=== PATIENT | female | born 1950 | race Caucasian/White ===

== ENCOUNTER → 2016-10-19 | Outpatient (CLI) | payer MEDICARE, BC ==
[~2016-10-19] MED LIST: ARTHROTEC 775 MG/TAB PO; LIPITOR20 MG PO; NORCO 325 MG-51 TAB PO; OMEGA-3 FISH1200 MG PO; ZYLOPRIM 100MG100 MG PO
== END ==
LOC: MC.RAD 13:49
DX: Z12.31 Encounter for screening mammogram for malignant neoplasm of breast (principal); R92.0 Mammographic microcalcification found on diagnostic imaging of breast

== ENCOUNTER → 2017-11-30 | Outpatient (CLI) | payer MEDICARE, BC | LOC: MC.RAD 14:34 | DX: Z12.31 Encounter for screening mammogram for malignant neoplasm of breast (principal) ==

== ENCOUNTER 2018-06-07 11:55 | Emergency (ER) | payer MEDICARE, BC ==
[~2018-06-07] VITALS: Ht 165.1 cm; Wt 120.9 kg
[2018-06-07 12:06] VITALS: TEMP 97.9
[2018-06-07] MEDS ORDERED: FLEXERIL 1010 MG/TAB PO (14:56)
[2018-06-07] MEDS ORDERED: NORCO 325 MG-51 TAB PO (14:56)
[2018-06-07] MEDS ORDERED: MEDROL 4MG DOSPA4 MG PO (14:56)
[2018-06-07 15:10] VITALS: BP 130/70; PULSE 70
== END 2018-06-07 15:10 | disposition home or self-care (01) ==
LOC: COL.ER 11:55
DX: M54.42 Lumbago with sciatica, left side (principal)

== ENCOUNTER → 2019-11-13 | Outpatient (CLI) | payer MEDICARE, BC, OTHER ==
[~2019-11-13] MED LIST changes: +FLEXERIL 1010 MG/TAB PO; +MEDROL 4MG DOSPA4 MG PO
== END ==
LOC: MC.RAD 13:03
DX: Z12.31 Encounter for screening mammogram for malignant neoplasm of breast (principal)

== ENCOUNTER → 2020-04-09 | Outpatient (CLI) | payer MEDICARE, BC, OTHER | LOC: COL.RAD 13:14 | DX: M47.816 Spondylosis without myelopathy or radiculopathy, lumbar region (principal); Z98.890 Other specified postprocedural states; Z98.1 Arthrodesis status ==

== ENCOUNTER 2020-10-06 12:43 | Inpatient (IN) | payer MEDICARE, BC ==
[~2020-10-06] VITALS: Ht 165.1 cm; Wt 113.6 kg
[2020-10-06 13:40] LABS: BASO % 0.1 % (0.0-2.0); GRAN % 75.1 % (42.2-75.2); HEMOGLOBIN 11.8 g/dl (12.5-16.0); LYMPH # 1.4 (1.2-3.4); LYMPH % 17.1 % (20.0-51.0); MEAN CELL VOLUME 103 fl (80.0-100.0); MEAN CORPUSCULAR HEMOGLOBIN 33 pg (27.0-31.0); MEAN CORPUSCULAR HGB CONC 32 g/dl (33.0-37.0); MEAN PLATELET VOLUME 11.9 fl (7.4-10.4); MONO # 0.6 (0.1-0.6); MONO % 7.1 % (1.7-9.3); PLATELET COUNT 167 K/mm3 (130-400); RED BLOOD COUNT 3.55 M/mm3 (4.10-5.30); REDCELL DISTRIBUTION WIDTH-CV 15.5 % (11.5-14.5)
[2020-10-06 13:42] LABS: HEMATOCRIT 36.7 % (37.0-47.0)
[2020-10-06 15:15] LABS: ALBUMIN 3.8 gm/dL (3.5-5.0); BILIRUBIN,TOTAL 0.5 mg/dL (0.0-1.0); CALCIUM 8.5 mg/dL (8.4-10.2); CREATININE, serum 4.89 (0.52-1.25); POTASSIUM 4.6 mmol/L (3.4-5.0); TOTAL PROTEIN 6.7 gm/dL (6.4-8.2)
[2020-10-06 15:34] LABS: C-REACTIVE PROTEIN 14.1 mg/dL (0.0-0.9)
[2020-10-06 15:34] LABS: COLLECTION METHOD CATHETER
[2020-10-06 15:55] LABS: MUCOUS Present /lpf; PH 5 (5-8); URINE APPEARANCE Cloudy; URINE BACTERIA Many /hpf; URINE BILIRUBIN Negative (NEGATIVE); URINE BLOOD 3+ (NEGATIVE); URINE COLOR Amber; URINE GLUCOSE Negative (NEGATIVE); URINE KETONE Negative (NEGATIVE); URINE LEUKOCYTE ESTERASE 2+ (NEGATIVE); URINE NITRATE Negative (NEGATIVE); URINE PROTEIN(semi-quant) 2+ (NEGATIVE); URINE UROBILINOGEN Negative (NEGATIVE)
[2020-10-06 23:14] VITALS: BP 119/54; PULSE 70; TEMP 98.7
--- NOTE | 2020-10-06 23:31 | NUR ---
Patient admitted to medical floor room 309 via hospital bed from ER around 1999. Patient appears confused and oriented to self only. Able to tell her name and date of . Oriented patient to the room and place. Patient currently on room air. Non-productive occasional coughing noted. Patient denies any pain or discomfort. Denies SOB or dyspnea. Breathing even and unlabored. Skin excoriation to under breast, pannus, and groin area noted. Sandwitch box and ice-water provided. Oriented patient to the room. Call light within reach. Will continue to monitor.
[2020-10-07 04:33] VITALS: BP 120/40; BP 120/50; PULSE 70; TEMP 98.2
--- NOTE | 2020-10-07 05:59 | NUR ---
Patient slept well over the night. VS remains stable. No fever, no N/v, and no diarrhea note throughout the night. Call light within reach. Will continue to monitor.
[2020-10-07 07:51] LABS: HEMOGLOBIN 10.7 g/dl (12.5-16.0); MEAN CELL VOLUME 100 fl (80.0-100.0); MEAN CORPUSCULAR HEMOGLOBIN 33 pg (27.0-31.0); MEAN CORPUSCULAR HGB CONC 33 g/dl (33.0-37.0); MEAN PLATELET VOLUME 11.5 fl (7.4-10.4); PLATELET COUNT 155 K/mm3 (130-400); RED BLOOD COUNT 3.26 M/mm3 (4.10-5.30); REDCELL DISTRIBUTION WIDTH-CV 15.2 % (11.5-14.5)
[2020-10-07 07:54] LABS: HEMATOCRIT 32.7 % (37.0-47.0)
[2020-10-07 08:07] LABS: CALCIUM 8.2 mg/dL (8.4-10.2); CREATININE, serum 3.02 (0.52-1.25); POTASSIUM 4.4 mmol/L (3.4-5.0)
[2020-10-07 08:39] LABS: ANISOCYTOSIS 1+; HYPOCHROMIA 1+; LYMPHOCYTE 10 % (20.0-51.0); NEUTROPHILS 88 % (42.0-75.2); PLATELET ESTIMATE NORMAL (NORMAL)
[2020-10-07 09:09] VITALS: BP 123/50; PULSE 73; TEMP 98.3
--- NOTE | 2020-10-07 10:18 | NUR ---
The patient is COVID positive. SW attempted to contact the patient's room phone to discuss discharge plan. She did not answer. JENNIFFER then contacted the patient's , Hunter (ph#[phone]), to complete intake. The patient lives in [place] with her . Hunter states that one of their sons is staying with them right now too. Hunter reports that he has been providing assistance to the patient for her ADLs and that she has a walker. The patient's PCP is Dr. Maria Teresa Pringle and she receives her medications from [facility] in [place]. Hunter reports no difficulties obtaining her meds. Hunter reports that he is concerned about the patient being discharged too soon and then he would not be able to take care of her. He states that it is starting to wear him down. SW to ask for PT/OT to be ordered. *Discharge plan: Possibly home with . Await therapy's recs*
[2020-10-07 11:17] VITALS: BP 125/46; PULSE 66; TEMP 98.5
--- NOTE | 2020-10-07 14:24 | NUR ---
Patient is doing well but does not have much of an appetite. Patient is being given nutritional supplements, but does not seem to like them. Patient seems to be more alert than she was on lunchroom mother according to report. Patient has been able to correctly tell me where she is, what year it is, and who the current president is. Patient has yet to have diarrhea as she reported to have been having at home. Patient has no complaints at this time and remains on RA.
[2020-10-07 17:00] VITALS: BP 124/49; PULSE 73; TEMP 98
--- NOTE | 2020-10-07 19:11 | NUR ---
This RN and the assigned PCT provided jamey-care for the patient and placed a purewik. Patient tolerated this well and had no complaints. Desenex powder was placed under the pannus and groin area.
[2020-10-07 21:25] VITALS: BP 145/67; PULSE 90; TEMP 98.9
[2020-10-08] VITALS (7 sets, daily range): BP systolic 118–148; BP diastolic 44–80; PULSE 67–94; TEMP 97.7–98.5
--- NOTE | 2020-10-08 01:08 | NUR ---
Pt confused, oriented to name and place. When asked questions pt's states "I'm gonna need a few minutes" then would forget the question. Pt confused on personal belongings thinking they were her . Pt calling out for help, educated information systems security analyst light, unable to comprehend. Baby monitor utilized for greater monitoring. Pt's skin folds are excoriated under breasts, within groin folds, and under abdomen. Pt's skin open under breasts, scant bleeding noted. Pt cleaned with personal bathing wipes, powder used to help manage moisture and pillowcases put inbetween skin folds as a barrier. Pt able to take PO medications with verbal cues. Pt has purewick catheter in place, pt confused on education and unable to comprehend ability to void with cathter. Pt will continue to be educated. Fall precautions observed, call light within reach.
--- NOTE | 2020-10-08 06:16 | NUR ---
Pt disoriented this shift, unable to answer orientation questions consistently. Oriented to name. Pt shouting out for help during the evening, re-educated bronze plater light use. Monitor placed in room for increased visualization and safety. Pt has purewick catheter placed for incontinence. Pt's skin folds of abdomen, groin, and breasts excoriated with some breaks in skin under breasts. Managed with powder and pillow cases to decrease moisture. Pt cleaned with cleansing wipes. Pt received PO antibiotics for infection management. Pt free from injury this shift. Pt expressed pain with movement and repositioning, denied pain for rest of shift.
[2020-10-08 06:40] LABS: BASO % 0.1 % (0.0-2.0); GRAN % 84.8 % (42.2-75.2); HEMOGLOBIN 11.2 g/dl (12.5-16.0); LYMPH # 1.1 (1.2-3.4); LYMPH % 10.2 % (20.0-51.0); MEAN CELL VOLUME 102 fl (80.0-100.0); MEAN CORPUSCULAR HEMOGLOBIN 33 pg (27.0-31.0); MEAN CORPUSCULAR HGB CONC 32 g/dl (33.0-37.0); MEAN PLATELET VOLUME 10.9 fl (7.4-10.4); MONO # 0.5 (0.1-0.6); MONO % 4.2 % (1.7-9.3); PLATELET COUNT 191 K/mm3 (130-400); RED BLOOD COUNT 3.39 M/mm3 (4.10-5.30); REDCELL DISTRIBUTION WIDTH-CV 15.2 % (11.5-14.5)
[2020-10-08 06:49] LABS: HEMATOCRIT 34.6 % (37.0-47.0)
[2020-10-08 06:56] LABS: CALCIUM 8.5 mg/dL (8.4-10.2); CREATININE, serum 2.11 (0.52-1.25); POTASSIUM 4.2 mmol/L (3.4-5.0)
--- NOTE | 2020-10-08 10:28 | NUR ---
Patient upset, crying, wanting to go home. Stated, "I can't do this anymore. I miss my kids and my . I can't keep this thing in my nose anymore". This RN comforted the patient and explained why everything was being done and that we are trying to help her recover and go back home. This RN did speak with the this morning and he informed me that the patient enjoys watching soap operas. This RN turned the tv on in the patient's room and that seemed to help with her mood a bit. Morning medications have been administered and assessment completed. Purewik was emptied and output has been adequate. Patient still has no appetite. This RN is encouraging the patient to eat, but patient still refuses.
[2020-10-08 12:51] LABS: ALBUMIN 3.4 gm/dL (3.5-5.0); C-REACTIVE PROTEIN 7.7 mg/dL (0.0-0.9); TOTAL PROTEIN 6.5 gm/dL (6.4-8.2)
[2020-10-08 13:02] LABS: BILIRUBIN UNCONJUGATED 0.2 mg/dL (0.0-1.1); BILIRUBIN,DIRECT 0.1 mg/dL (0.0-0.4); BILIRUBIN,TOTAL 0.3 mg/dL (0.0-1.0)
--- NOTE | 2020-10-08 20:00 | NUR ---
Assessment complete. Patient is alert and oriented, but beginning to . She is tearful and feels lonely. Emotional support is provided and patient is assisted to call her , Hunter, who is also updated on patient's status by the RN at this time. Patient has no complaints of pain and is afebrile. No edema is noted. Lung sounds have expiratory wheezes throughout and HR is normal/regular. She wears 2 liters 02 with no signs of SOA. Call light in reach and bed alarm set. Will continue to monitor.
[2020-10-09 04:30] VITALS: BP 144/69; PULSE 66; TEMP 97.6
[2020-10-09 07:06] LABS: BASO % 0.1 % (0.0-2.0); GRAN # 6.1 (1.4-6.5); GRAN % 80.1 % (42.2-75.2); HEMOGLOBIN 11.8 g/dl (12.5-16.0); LYMPH % 13.1 % (20.0-51.0); MEAN CELL VOLUME 103 fl (80.0-100.0); MEAN CORPUSCULAR HEMOGLOBIN 34 pg (27.0-31.0); MEAN CORPUSCULAR HGB CONC 33 g/dl (33.0-37.0); MONO # 0.4 (0.1-0.6); MONO % 5.6 % (1.7-9.3); PLATELET COUNT 211 K/mm3 (130-400); RED BLOOD COUNT 3.49 M/mm3 (4.10-5.30); REDCELL DISTRIBUTION WIDTH-CV 15.3 % (11.5-14.5)
[2020-10-09 07:15] LABS: ALBUMIN 3.3 gm/dL (3.5-5.0); BILIRUBIN,TOTAL 0.5 mg/dL (0.0-1.0); C-REACTIVE PROTEIN 8.6 mg/dL (0.0-0.9); CALCIUM 8.4 mg/dL (8.4-10.2); CREATININE, serum 1.77 (0.52-1.25); POTASSIUM 4.4 mmol/L (3.4-5.0); TOTAL PROTEIN 6.3 gm/dL (6.4-8.2)
[2020-10-09 07:24] VITALS: BP 164/78; PULSE 66; TEMP 97.6
[2020-10-09 07:29] LABS: HEMATOCRIT 35.8 % (37.0-47.0)
--- NOTE | 2020-10-09 11:14 | NUR ---
Scheduled medications given, shift assessment preformed. Patient is currently requiring 4 L of O2 via nasal cannula. Excoriation noted on abdominal folds, desenex powder applied as ordered. LR running as orderded. Purewick in use, urine is tea colored. Patient denies any pain, discomfort, or futher needs at this time. VSS. Call light in reach. Fall precautions in place.
[2020-10-09 12:00] VITALS: BP 155/87; PULSE 63; TEMP 97.6
--- NOTE | 2020-10-09 19:14 | NUR ---
Patient has had an ok day. Currently requiring 4L of O2 via nasal cannula. Bed change and bed bath completed. Purewick in place. Patient answers orientation questions correctly, but conversation can be confused. Patient had one episode of diarrhea. Patient denies any N/V, but has refused to eat today. Fluids running as ordered. Patient denies any pain, discomfort, or further needs. VSS. Call light in reach.
--- NOTE | 2020-10-09 20:00 | NUR ---
Assessment complete. Patient answers orientation questions correctly but still appears slightly confused; she has not been impulsive in getting out of bed. She complaints of generalized discomfort, specifically in her arthritic joints; PRN Tylenol administered. Purewick is removed and replaced at this time; she is incontinent of a small, diarrhea bowel movement as well and linens are changed/jamey care provided. She wears 4 liters 02 and shows no signs of increased work of breathing. Desenex powder is applied under panus and no edema is noted in extremities. LR infusing into right forearm IV. Patient's is updated on patient's condition. Call light in reach and bed alarm set. Will continue to monitor.
[2020-10-09 20:18] VITALS: BP 130/90; PULSE 66; TEMP 97.7
[2020-10-10 00:03] VITALS: BP 149/120; PULSE 58; TEMP 97.7
[2020-10-10 04:55] VITALS: BP 157/70; PULSE 64; TEMP 97.7
[2020-10-10 07:10] LABS: HEMATOCRIT 38.8 % (37.0-47.0); HEMOGLOBIN 12.4 g/dl (12.5-16.0); MEAN CELL VOLUME 104 fl (80.0-100.0); MEAN CORPUSCULAR HEMOGLOBIN 33 pg (27.0-31.0); MEAN CORPUSCULAR HGB CONC 32 g/dl (33.0-37.0); MEAN PLATELET VOLUME 10.9 fl (7.4-10.4); PLATELET COUNT 235 K/mm3 (130-400); RED BLOOD COUNT 3.73 M/mm3 (4.10-5.30); REDCELL DISTRIBUTION WIDTH-CV 15.3 % (11.5-14.5)
[2020-10-10 07:16] LABS: ALBUMIN 3.2 gm/dL (3.5-5.0); BILIRUBIN,TOTAL 0.5 mg/dL (0.0-1.0); CALCIUM 8.4 mg/dL (8.4-10.2); CREATININE, serum 1.58 (0.52-1.25); MAGNESIUM 2.2 mg/dL (1.6-2.3); POTASSIUM 4.7 mmol/L (3.4-5.0); TOTAL PROTEIN 6.2 gm/dL (6.4-8.2)
[2020-10-10 08:58] VITALS: BP 154/68; PULSE 53; TEMP 96.7
[2020-10-10 11:09] VITALS: BP 157/58; PULSE 58; TEMP 98
[2020-10-10 15:54] VITALS: BP 159/53; PULSE 57; TEMP 98.2
--- NOTE | 2020-10-10 16:34 | NUR ---
LEDESMA PLACED IN PT, IMMEDIATE OUTPUT OF 750 DARK YELLOW CLEAR URINE. PT TOLERATED PLACEMENT WELL. NO OTHER CONCERNS.
[2020-10-10 17:21] LABS: THYROID STIMULATING HORMONE 1.66 uIU/mL (0.465-4.680)
--- NOTE | 2020-10-10 18:00 | NUR ---
Patient has had an eventful day. Patient transferred from 309 to room 308 to be placed on air mattress to prevent further breakdown of sacral area. Scheduled medications given, shift assessment preformed. This nurse has been unable to get patient to eat this shift. Patient asked if there is anything specific she would prefer, her reply was "I am not hungry." Dr. Blood made aware. Patient output totaled only 100 mls. Bladder scan preformed, patient had 518 ml of residual in bladder. Dr. Blood made aware, order for sotelo placed. FRED Brown. placed sotelo an immediately got 750ml of urine out. PRN tylenol given for headache rated a 3/10. Patient currently requiring 5L of O2 via oxymask. Patient repositioned Q2. Patient denies any further pain, discomfort, or futher needs a this time. VSS.
--- NOTE | 2020-10-10 19:43 | NUR ---
FOUND PT W/ OXYMASK OFF OF FACE O2 SATS AROUND 72% ON RA. STAYED W/ PT SEVERAL MINUTES AND SHE IS NOW 91% ON 11 LPM OXYMASK. PT SAID SHE TOOK MASK OFF B/C SHE WAS TIRED OF IT. SPOKE W/ PT ABOUT IMPORTANCE OF LEAVING O2 ON AND SHE SEEMED TO HAVE A GOOD UNDERSTANDING. I WILL INFORM RN
--- NOTE | 2020-10-10 20:00 | NUR ---
Assessment complete. Patient is slightly drowsy and appears more depressed than normal; she answers 3/4 orientation questions correctly. She was able to get up on edge of bed and stand with assistance in order to get better positioned in bed. She wears 9 liters 02 via oxymask and is satting 91-92%. Fine crackles are now audible in upper lobes with greatly diminished sounds in lower lobes. Emotional support and comfort measures are provided. Call light in reach and will continue close monitoring.
[2020-10-10 21:25] VITALS: BP 174/78; PULSE 86; TEMP 97.2
[2020-10-11] VITALS: BP 180/71; PULSE 76; TEMP 98.3
--- NOTE | 2020-10-11 00:18 | NUR ---
BP 180/71 at this time. Order obtained for PRN apresoline, which is administered into newly initiated right forearm INT. Patient on 10 liters 02 via oxymask and satting 90-92%. She is afebrile. Will continue to monitor.
[2020-10-11 01:25] LABS: PROCALCITONIN 0.49 ng/mL (0.00-0.09)
[2020-10-11 01:49] LABS: ARTERIAL BLD GAS TCO2 CT 21.1; ARTERIAL BLOOD GAS BASE EXCESS -1.1 (-2-2); ARTERIAL BLOOD GAS HCO3 20.3 meq/L (22-26); ARTERIAL BLOOD GAS PCO2 25.7 mmHg (35-45); ARTERIAL BLOOD GAS PO2 61.3 mmHg (80-100); ARTERIAL BLOOD GAS pH 7.52 (7.35-7.45)
--- NOTE | 2020-10-11 02:00 | NUR ---
Patient consistently taking off oxymask; requiring 14 liters and satting 89-91%. RT and TAILER OFF Marguerite notified; trialed BIPAP which patient only tolerated for approx 30 minutes. Patient now on airvo, after several minutes of education regarding risks without it. CT of head and chest ordered for when patient's anxiety will allow for accurate testing.
[2020-10-11 02:32] LABS: HEMATOCRIT 40.4 % (37.0-47.0); HEMOGLOBIN 12.8 g/dl (12.5-16.0); MEAN CELL VOLUME 104 fl (80.0-100.0); MEAN CORPUSCULAR HEMOGLOBIN 33 pg (27.0-31.0); MEAN CORPUSCULAR HGB CONC 32 g/dl (33.0-37.0); MEAN PLATELET VOLUME 10.7 fl (7.4-10.4); PLATELET COUNT 248 K/mm3 (130-400)
[2020-10-11 02:43] LABS: ALBUMIN 3.3 gm/dL (3.5-5.0); BILIRUBIN,TOTAL 0.7 mg/dL (0.0-1.0); CALCIUM 8.4 mg/dL (8.4-10.2); CREATININE, serum 1.46 (0.52-1.25); MAGNESIUM 2.1 mg/dL (1.6-2.3); POTASSIUM 4.3 mmol/L (3.4-5.0); TOTAL PROTEIN 6.4 gm/dL (6.4-8.2)
[2020-10-11 07:40] VITALS: BP 152/80; PULSE 89; TEMP 97.2
[2020-10-11 11:28] VITALS: BP 118/90; PULSE 95; TEMP 97.6
--- NOTE | 2020-10-11 14:05 | NUR ---
The patient is currently requiring 50 liters of oxygen, via high flow cannula. PT/OT are recommending SNF. SW contacted the patient's , Hunter, to follow up. Hunter reports that he has not received a call from the doctor in a couple of days and is not for certain what is going on. SW to ask the hospitalist to contact Hunter. SW updated Hunter on the patient's oxygen requirements and therapy's recommendation. Hunter is open to SNF and is considering a SNF in [place]. He would like a call from the doctor and states that he will then proceed with d/c plans from there. SW to continue to follow. *Discharge plan: SNF*
[2020-10-11 15:34] VITALS: BP 150/81; PULSE 60; TEMP 97.8
--- NOTE | 2020-10-11 19:10 | NUR ---
Pt remained very confused and non compliant with airvo. Staff in several times throughout the day to replace it. Pt kept saying "I can't wear this anymore", repeating several times she needed to urinate. Remineded of sotelo catheter in place. Attempted to reorient patient. Pt refused much PO intake. Took pills with water but would not drink anything further than that. Refused food, she did attempt to eat one dorito. Pt does have a pressure reducing mattress in place. Nephrology consulted today per Dr. Godoy. No needs at this time, monitor in place along with fall precautions.
[2020-10-11 20:13] VITALS: BP 141/65; PULSE 67; TEMP 97.9
--- NOTE | 2020-10-11 20:30 | NUR ---
Initial shift assessment done- pt confused, pulling of oxygen, on airvi 50L,61%,, sats 80% when o2 off--Airvo back on, mitts put on patient-- back up to 92%. Did take pills with water. bed alarm on- In Isolation, Visual monitor on patient.
--- NOTE | 2020-10-11 22:35 | NUR ---
Called by Tele that patient is having frequent PVC,s- o2 sats 92% on AirvoMarguerite called - orders for lab work and ABG,s and EKG given.
[2020-10-11 23:14] LABS: ARTERIAL BLD GAS TCO2 CT 21.3; ARTERIAL BLOOD GAS BASE EXCESS -1.2 (-2-2); ARTERIAL BLOOD GAS HCO3 20.5 meq/L (22-26); ARTERIAL BLOOD GAS PCO2 26.3 mmHg (35-45); ARTERIAL BLOOD GAS PO2 78.4 mmHg (80-100); ARTERIAL BLOOD GAS pH 7.51 (7.35-7.45)
[2020-10-11 23:57] LABS: CALCIUM 8.4 mg/dL (8.4-10.2); CREATININE, serum 1.26 (0.52-1.25); MAGNESIUM 2.1 mg/dL (1.6-2.3); POTASSIUM 4.2 mmol/L (3.4-5.0)
[2020-10-12 00:20] VITALS: BP 166/83; PULSE 84; TEMP 98.7
--- NOTE | 2020-10-12 01:30 | NUR ---
Very agitated-- pulling off mitts- yelling out,, Marguerite called- did go over all lab results from earlier and the EKG and ABG,s,,, states she will order one time serarustaml p.o
[2020-10-12 04:00] VITALS: BP 150/57; PULSE 55; TEMP 97.7
--- NOTE | 2020-10-12 06:03 | NUR ---
Slept very well after the Seraquel that was given at 0200-- VSS, o2 sats 97% on Airvo 50L, 61%,,, did have just a smear of stool that was cleaned up- repositioned -pulled up in bed during the night.
--- NOTE | 2020-10-12 07:01 | NUR ---
Report received from FRED Phipps. PT in bed sleeping, will continue otm ontior.
[2020-10-12 09:34] VITALS: BP 155/83; PULSE 83; TEMP 97.5
--- NOTE | 2020-10-12 10:00 | NUR ---
Assessment hcarted. Upon entry into room pt has 02 off and is shaking and moving around in bed. states she "has to pee", educated on catheter and able to void via sotelo, pt continues to state "i have to pee" approximately 10 more educational sessions provided. Turned pt for comfort to offset reddened area that may be stage one on either side of buttock cheeks. Pt states she hurts everywhere, refusing to eat or drink anything, does not orient to date or place. INT ot RFA. Tried to feed breakfast but pt spits it out. Airvo at 50L/60%. Will continue to turn and assist with meals.
[2020-10-12 12:26] VITALS: BP 178/75; PULSE 62; TEMP 97.9
[2020-10-12] MEDS ORDERED: HCTZ12.5TAB PO (12:59)
[2020-10-12] MEDS ORDERED: CALCITRIOL PO (12:59)
[2020-10-12] MEDS ORDERED: NEURONTIN300 MG/CAP PO (13:00)
[2020-10-12] MEDS ORDERED: PRINIVIL10 MG PO (13:00)
[2020-10-12] MEDS ORDERED: ZYLOPRIM 300MG300 MG PO (13:01)
[2020-10-12] MEDS ORDERED: TOPROL XL100 MG PO (13:01)
[2020-10-12 16:00] VITALS: BP 157/85; PULSE 55; TEMP 97.5
[2020-10-12 17:30] LABS: COLLECTION METHOD CATHETER
[2020-10-12 17:39] LABS: BUDDING YEAST Present /hpf; PH 6 (5-8); SQUAMOUS EPITHELIAL 0-2 /hpf; URINE APPEARANCE Hazy; URINE BACTERIA None Seen /hpf; URINE BILIRUBIN Negative (NEGATIVE); URINE BLOOD 3+ (NEGATIVE); URINE COLOR Yellow; URINE GLUCOSE Negative (NEGATIVE); URINE KETONE Negative (NEGATIVE); URINE LEUKOCYTE ESTERASE Negative (NEGATIVE); URINE NITRATE Negative (NEGATIVE); URINE PROTEIN(semi-quant) 2+ (NEGATIVE); URINE RBC >50 /hpf; URINE UROBILINOGEN Negative (NEGATIVE); URINE WBC >50 /hpf
--- NOTE | 2020-10-12 18:26 | NUR ---
Pt resting in bed, bed bath provided this afternoon. Encouraged pt to do own cares but pt did not want to participate much, also needed a lot of cueing such as "Fern please use the comb in your hand to comb your hair" after pt left it in hand for 5 minutes after bath. Pt did drink a bit more water over shift but still rejecting all foods and will not tell me anything specific that is appealing to her. Denies needs, turning q2hr for comfort to either side. Watching TV. Will give report to [facility] nurse hwo will resume care.
--- NOTE | 2020-10-12 20:30 | NUR ---
Initial shift assessment done- resting quietly, pleasantly confused, calm, not taking airvo off- states does have some "aches"-- will give Tylenol . Taking some water with meds without problems. Airvo at 50L,62%- sats 95-96%
[2020-10-12 20:37] VITALS: BP 175/61; PULSE 43; TEMP 99.3
[2020-10-13 00:29] VITALS: BP 157/63; PULSE 54; TEMP 98.9
[2020-10-13 04:15] VITALS: BP 150/60; PULSE 55; TEMP 97
--- NOTE | 2020-10-13 06:15 | NUR ---
Very calm night- VSS, did not take off oxygen at all during the shift- Continues on Airvo 45L,55% , o2 sat 96% at this time. VSS
[2020-10-13 08:58] VITALS: BP 148/61; PULSE 57; TEMP 97.5
[2020-10-13 09:19] LABS: HEMATOCRIT 38.9 % (37.0-47.0); HEMOGLOBIN 12.7 g/dl (12.5-16.0); MEAN CELL VOLUME 103 fl (80.0-100.0); MEAN CORPUSCULAR HEMOGLOBIN 34 pg (27.0-31.0); MEAN CORPUSCULAR HGB CONC 33 g/dl (33.0-37.0); MEAN PLATELET VOLUME 10.8 fl (7.4-10.4); PLATELET COUNT 226 K/mm3 (130-400); RED BLOOD COUNT 3.79 M/mm3 (4.10-5.30); REDCELL DISTRIBUTION WIDTH-CV 14.7 % (11.5-14.5)
[2020-10-13 09:32] LABS: CALCIUM 8.4 mg/dL (8.4-10.2); CREATININE, serum 1.15 (0.52-1.25); MAGNESIUM 2.2 mg/dL (1.6-2.3); POTASSIUM 4.8 mmol/L (3.4-5.0)
[2020-10-13 11:07] LABS: BAND 1 % (0-10); HYPOCHROMIA 1+; LYMPHOCYTE 11 % (20.0-51.0); NEUTROPHILS 84 % (42.0-75.2)
[2020-10-13 11:08] LABS: PLATELET ESTIMATE NORMAL (NORMAL)
[2020-10-13 12:00] VITALS: BP 143/71; PULSE 58; TEMP 98.5
[2020-10-13 16:03] VITALS: BP 146/51; PULSE 46; TEMP 98.3
--- NOTE | 2020-10-13 16:35 | NUR ---
Patient refuses to consume anything orally. This RN has attempted multiple times to get the patient to eat/drink. Patient just states, "I will eat when I'm hungry". This RN attempted to get the patient to turn and place pillows on the opposite side, but she refuses. Patient is accepting medications. Patient just sleeps, and is easy to arouse.
[2020-10-13 19:28] VITALS: BP 169/68; PULSE 50; TEMP 98.4
--- NOTE | 2020-10-13 20:07 | NUR ---
Initial shift assessment completed. Patient laying in bed awake upon enter the room. Patient alert and oriented. Patient answers questions appropriately. Dinner tray at bedside table. Offered patient to eat dinner, patient replied, "I am not hungry." Patient currently on Arivo 40L/56%. Breathing even and unlabored. Patient denies SOB or dyspnea. Denies any pain or discomfort. All scheduled meds given per MAY. Patient took medication without difficulty. Offered patient to reposition, but patient refused. Call light within reach. Will continue to monitor.
[2020-10-14] VITALS (8 sets, daily range): BP systolic 128–186; BP diastolic 53–77; PULSE 45–685; TEMP 97.3–98.2
--- NOTE | 2020-10-14 05:33 | NUR ---
Patient had restful night. Awakes easily with voice and touch. Remains on Airvo 40L/40%. No acute respiratory distress noted. Call light within reach. Will continue to monitor.
--- NOTE | 2020-10-14 08:15 | NUR ---
Pt sleeping upon entry, easily awakened. Pt not eating food that is offered, states has no appatite. No C/O pain at this time. Shift assesments complete. Left Pt call light in reach, bed in lowest position.
--- NOTE | 2020-10-14 21:08 | NUR ---
Shift assessment completed. Patient appears drowsy but arousable easily with voice and touch. Patient answers questions appropriately. Patient denies any pain or discomfort. Denies SOB or dyspnea while at rest. Patient currently on Airvo 40L/36%. Respirations even and unlabored. Scheduled meds given per MAY. Patient took medications without difficulty. Offered snacks and Ensure. Patient refused. Patient states not hungry. Call light in reach. Will continue to monitor.
[2020-10-15 04:55] VITALS: BP 128/57; PULSE 63; TEMP 97.8
--- NOTE | 2020-10-15 05:55 | NUR ---
Patient slept well throughout the night. Arouses easily with voice. Remains on Airvo 40L. SPO2 remains above 90% on 40L Airvo. No acute distress noted.
[2020-10-15 07:13] LABS: HEMATOCRIT 40.1 % (37.0-47.0); HEMOGLOBIN 13.1 g/dl (12.5-16.0); MEAN CELL VOLUME 104 fl (80.0-100.0); MEAN CORPUSCULAR HEMOGLOBIN 34 pg (27.0-31.0); MEAN CORPUSCULAR HGB CONC 33 g/dl (33.0-37.0); MEAN PLATELET VOLUME 11.3 fl (7.4-10.4); PLATELET COUNT 231 K/mm3 (130-400); RED BLOOD COUNT 3.86 M/mm3 (4.10-5.30); REDCELL DISTRIBUTION WIDTH-CV 14.5 % (11.5-14.5)
[2020-10-15 07:25] LABS: ALBUMIN 3.2 gm/dL (3.5-5.0); BILIRUBIN,TOTAL 0.8 mg/dL (0.0-1.0); CALCIUM 8.5 mg/dL (8.4-10.2); CREATININE, serum 1.29 (0.52-1.25); MAGNESIUM 2.2 mg/dL (1.6-2.3); POTASSIUM 4.9 mmol/L (3.4-5.0); TOTAL PROTEIN 5.9 gm/dL (6.4-8.2)
[2020-10-15 07:49] VITALS: BP 110/46; PULSE 54; TEMP 97.8
--- NOTE | 2020-10-15 08:30 | NUR ---
JENNIFFER contacted and faxed referrals to [facility], [facility], and [facility]. Awaiting screens.
[2020-10-15 08:39] LABS: ANISOCYTOSIS 1+; LYMPHOCYTE 13 % (20.0-51.0); METAMYELOCYTE 1 % (0-0); NEUTROPHILS 83 % (42.0-75.2); PLATELET ESTIMATE NORMAL (NORMAL)
[2020-10-15 08:40] LABS: HYPOCHROMIA 1+
[2020-10-15 11:32] VITALS: BP 133/48; PULSE 59; TEMP 97.9
--- NOTE | 2020-10-15 14:07 | NUR ---
Patient remains in bed and continues to refuse oral intake. She did take 1 bite of a banana and 2 sips of water. This RN has been encouraging intake bit patient insists that she is "not hungry". Patient does seem more alert as compared to the weekend when this RN was providing her care. Patient is easy to arouse. VSS have been stable, and she is handling the switch from Airvo to HFNC well.
--- NOTE | 2020-10-15 15:54 | NUR ---
Tyra, [facility] Director, notified SW that she received a consult on the patient. Madison, at [facility], reports that they will continue to follow the patient; but that they want to make sure that the patient's respiratory needs are stable. SW contacted and updated the patient's , Hunter. Hunter is in agreement to SNF. He confirms that they would just want to go to a facility in [place]. SW to continue to follow.
[2020-10-15 16:13] VITALS: BP 115/65; PULSE 68; TEMP 97.7
--- NOTE | 2020-10-15 18:20 | NUR ---
Patient ate a little bit during lunch (1 cup of pudding, 1 bite of mashed potatoes, and 1 bite of peaches). This is a great improvement as compared to before. Patient remains in bed with sotelo in place.
[2020-10-15 20:06] VITALS: BP 124/54; PULSE 56; TEMP 97.9
--- NOTE | 2020-10-15 20:35 | NUR ---
Patient is resting in bed, alert and oriented x 4, low diastolic and hr in 50's. BP meds hold. Pressure ulcer was covered with allevin liffe sacrum. Patient is in 4L high flow oxygen. No complains at this time. Meds provided. Some power was applied in irritated skin under the breast by FRED Ortega. No further needs at this time. Call light within reach.
--- NOTE | 2020-10-15 23:26 | NUR ---
Patient is lying in bed, awake and watching tv in silence. Took off her oxygen and denied to place it back. Education was provided and accepted to put it back. Patient asked to turn off the lights ant TV. No further needs at this time. Call light within reach.
[2020-10-15 23:45] VITALS: BP 127/59; PULSE 58; TEMP 97.2
[2020-10-16 04:02] VITALS: BP 124/52; PULSE 53; TEMP 97.4
--- NOTE | 2020-10-16 05:35 | NUR ---
Patient has had a calm night. She is sleeping right now. She continues with high flow 02 at 4L. No further needs right now. Call [facility] within reach.
[2020-10-16 08:47] VITALS: BP 133/62; PULSE 66; TEMP 97.9
--- NOTE | 2020-10-16 10:17 | NUR ---
Patient in a pleasant mood this morning. Patient requested ice water, but still is not eating much. She only had 2 bites of her breakfast. O2 was at 90% on 2L HFNC. This RN turned her up to 3L and she went up to 92%. Patient joked with this RN while completing shift assessment. PT worked with the patient and said she had done better than yesterday, but is still very weak and only stood for about 45 seconds.
[2020-10-16 13:09] VITALS: BP 119/44; PULSE 58; TEMP 97.9
--- NOTE | 2020-10-16 15:48 | NUR ---
Upon admission patient reported positive COVID test of 10/02/20. Today is 14 days post positive test. Pt. clinically improved. With consult of Dr. Wood will discontinue COVID isolation this afternoon. Olaf Christianson RN, Infection Prevention.
--- NOTE | 2020-10-16 15:48 | NUR ---
JENNIFFER faxed updates to [facility], [employer], and [employer]. JENNIFFER left a message with Bhaskar at [facility] on whether they can take or not.
--- NOTE | 2020-10-16 15:58 | NUR ---
The hospitalist is ready to d/c the patient today. Tyra, [facility] Director, reports that she is able to accept the patient. SW contacted and updated the patient's , Hunter. Hunter is in agreement to the plan. The patient is to discharge today, 10/16, to [facility]. No additional needs at this time.
[2020-10-16 17:16] VITALS: BP 103/76; PULSE 60; TEMP 97.6
[2020-10-16] MEDS ORDERED: MELATIN 3 MG-11 TAB PO (17:22)
[2020-10-16] MEDS ORDERED: DESENEX TP (17:22)
[2020-10-16] MEDS ORDERED: ROBITUSSIN DM 105 ML PO (17:23)
[2020-10-16] MEDS ORDERED: TYLENOL 325MG325 MG PO (17:23)
[2020-10-16] MEDS ORDERED: LOPRESSOR 225 MG/TAB PO (17:25)
[2020-10-16] MEDS ORDERED: INCRUSE EL62.5 MCG/A IH (17:25)
[2020-10-16] MEDS ORDERED: [UNRECOGNIZED DRUG - OTHER] IH (17:25)
[2020-10-16] MEDS ORDERED: ZOFRAN ODT4 MG PO (17:26)
[2020-10-16] MEDS ORDERED: HEPARIN SOD5000 U/ML SQ (17:26)
--- NOTE | 2020-10-16 18:40 | NUR ---
Report given to [facility] nurse. Patient told she was going to [facility] and began crying out of francis. Patient transferred to [facility] by this RN.
== END 2020-10-16 18:30 | DRG 177 ==
LOC: COL.ER 12:43 → MEDICAL 16:47
PROVIDERS: Family Medicine; Internal Medicine Nephrology; Nurse Practitioner Family; ADMIT Internal Medicine
PROC: XW033E5 Introduction of Remdesivir Anti-infective into Peripheral Vein, Percutaneous Approach, New Technology Group 5 (ICD-10-PCS; principal; 2020-10-08)
DX: U07.1 COVID-19 (principal); J12.82 Pneumonia due to coronavirus disease 2019; J96.01 Acute respiratory failure with hypoxia; G93.41 Metabolic encephalopathy; K85.90 Acute pancreatitis without necrosis or infection, unspecified; E87.2 Acidosis; N17.9 Acute kidney failure, unspecified; N39.0 Urinary tract infection, site not specified; L89.302 Pressure ulcer of unspecified buttock, stage 2; R74.01 Elevation of levels of liver transaminase levels; E86.0 Dehydration; Z66 Do not resuscitate; R19.7 Diarrhea, unspecified; R53.81 Other malaise; E66.01 Morbid (severe) obesity due to excess calories; G47.33 Obstructive sleep apnea (adult) (pediatric)
CPT/HCPCS: 99223-AI; 99233-AI; 99239; J0360; J0696; J1644; J1940; J2060; J2405; J7030; J7050; J7120; J8540; Q0244; Q0249; Q9967

== ENCOUNTER 2020-10-16 16:57 | Inpatient (IN) | payer MEDICARE, BC ==
[~2020-10-16] VITALS: Ht 165.1 cm; Wt 101.0 kg
[~2020-10-16 16:57] MED LIST changes: +CALCITRIOL PO; +HCTZ12.5TAB PO; +NEURONTIN300 MG/CAP PO; +PRINIVIL10 MG PO; +TOPROL XL100 MG PO; +ZYLOPRIM 300MG300 MG PO
[2020-10-16] MEDS ORDERED: MELATIN 3 MG-11 TAB PO (17:22)
[2020-10-16] MEDS ORDERED: DESENEX TP (17:22)
[2020-10-16] MEDS ORDERED: ROBITUSSIN DM 105 ML PO (17:23)
[2020-10-16] MEDS ORDERED: TYLENOL 325MG325 MG PO (17:23)
[2020-10-16] MEDS ORDERED: INCRUSE EL62.5 MCG/A IH (17:25)
[2020-10-16] MEDS ORDERED: LOPRESSOR 225 MG/TAB PO (17:25)
[2020-10-16] MEDS ORDERED: [UNRECOGNIZED DRUG - OTHER] IH (17:25)
[2020-10-16] MEDS ORDERED: HEPARIN SOD5000 U/ML SQ (17:26)
[2020-10-16] MEDS ORDERED: ZOFRAN ODT4 MG PO (17:26)
--- NOTE | 2020-10-16 18:00 | NUR ---
Received report from Wen @ Medical unit: Patient is a current DNR, she is a 70 Year old male and would be coming over to [facility] Room #335 with debility. She is a one to two assist with walker pivot transferring only due to weakness. She has a sotelo catheter in place for urinary retention per nurse. She takes her pills whole with water. She is on a carb controlled diet, but is not a diabetic. She has a stage I wound to her bottom. Patient was transferred over via wheelchair and her weight was taken on the standing scale and was 103.9 kg. Patient is currently resting in bed, call light in reach and bed alarm set. Reported off to night nurse.
[2020-10-16 20:03] VITALS: BP 113/53; PULSE 62; TEMP 97.4
--- NOTE | 2020-10-16 21:13 | NUR ---
Assessment admission done and completed, alert/oriemted. VS are all stable. No complains of pain or SOB. Came up with sotelo catheter draining clear yellow. Get up 1person assist with walker. Explain the activities and program in the admission packet. She verbalized understanding. She asked for melatonin for she said she want to sleep good tonight. Otherwise no further concern. Bed alarm is on and call light is within reach. Continue to monitor.
[2020-10-17 03:29] VITALS: BP 114/41; PULSE 59; TEMP 97.6
--- NOTE | 2020-10-17 06:46 | NUR ---
Report received from FRED Bishop. Patient is resting comfortably in bed. Call light and bedside table are within reach. Will continue to monitor patient throughout shift.
--- NOTE | 2020-10-17 14:16 | NUR ---
Welcomed pt to Rehab unit. Explained the rehab process & goals. Complete SW assessment w/ pt. She is alert & oriented & able to communicate her needs & wants. She lives w/ her in a 1 story home w/ 1 step & handrail. The bathroom has a walk in shower w/ curtain, grab bars, & built in shower seat. The toilet is standard height. Pt reports she walks w/ a r/walker & independent w/ her self care. She also reported doing her own medication management & finance management. She has her own q/cane, & r/walker. Pharmacy: [facility] & reports she has no concerns or issues w/ affording her medications. PCP: Dr. Pringle. She does not have DPOA paperwork, & not interested in paperwork. Pt had no questions/concerns at this time about her rehab stay. Contacted pt's & provided him an update & answered his questions. SW will continue to provide support & assist w/ d/c planning.
[2020-10-17 17:51] VITALS: BP 107/47; PULSE 59; TEMP 97.2
[2020-10-17 19:44] VITALS: BP 114/67; PULSE 64; TEMP 97.3
--- NOTE | 2020-10-17 22:09 | NUR ---
Pt has been sleeping since i came this evening and was able to wake and take her pills. Pain rated 0/10. Vss. Will continue to monitor.
[2020-10-18 05:12] VITALS: BP 101/52; PULSE 58; TEMP 97.4
--- NOTE | 2020-10-18 06:30 | NUR ---
Report received by FRED Simpson. Patient is sleeping in bed. Call light and bedside table are within reach. Will continue to monitor patient throughout shift.
--- NOTE | 2020-10-18 06:30 | NUR ---
Report received from FRED Simpson Patient is resting comfortably in bed. Call light and bedside table are within reach. Will continue to monitor throughout shift.
--- NOTE | 2020-10-18 15:00 | NUR ---
Patient is through with all therapies and is resting in recliner. Will continue to monitor patient throughout shift.
--- NOTE | 2020-10-18 17:00 | NUR ---
This nurse titrated patient off of oxygen. Informed oncoming nurse to monitor patient's SATS
[2020-10-18 17:21] VITALS: BP 79/57; PULSE 52; TEMP 97.8
[2020-10-18 19:28] VITALS: BP 104/67; PULSE 60; TEMP 97.3
--- NOTE | 2020-10-18 21:04 | NUR ---
Pt has looks so depressed and refused to eat today. Espinoza is out. Will continue to monitor.
[2020-10-19 04:46] VITALS: BP 129/50; PULSE 64; TEMP 97.3
--- NOTE | 2020-10-19 08:50 | NUR ---
Patient resfused her breakfast this morning only wanting coffee. She did not know what town she was in this morning. Educated on where she was at. Will continue to monitor.
--- NOTE | 2020-10-19 11:43 | NUR ---
Received a report from therapy that patient was requesting to go home and was refusing some therapies. This nurse left a message for patient's to return my call to discuss patient depression. Awaiting on a return call.
[2020-10-19 15:57] VITALS: BP 93/51; PULSE 65; TEMP 97.3
--- NOTE | 2020-10-19 19:12 | NUR ---
Patient did attended the rest of her therapies this shift. She has been tearful this evening and this nurse did visit with her for a short period of time. She was having pain to her coccyx area, but refused to reposition in her chair as instructed. This nurse did have patient stand at times and then placed pillows under her to prevent pressure to the area. She is currently resting in bed, call light in reach and resting on her right side with pressure off of her bottom. Reported off to night nurse.
[2020-10-19 19:17] VITALS: BP 103/51; PULSE 67; TEMP 97.5
--- NOTE | 2020-10-19 20:49 | NUR ---
Pt has been ok but still looks depressed. BP is litlle soft. Pain rated 3/10 Will continue to monitor.
[2020-10-20 01:33] VITALS: BP 134/66; PULSE 71; TEMP 97.7
[2020-10-20 05:46] VITALS: BP 130/64; PULSE 66; TEMP 97.9
[2020-10-20 15:02] VITALS: BP 111/43; PULSE 62; TEMP 97.6
--- NOTE | 2020-10-20 18:59 | NUR ---
Patient has excoriation on her bottom and area was cleaned patted dry and applied Aquacel AG over area and secured with mepilex. Patient tolerated well.
--- NOTE | 2020-10-20 19:00 | NUR ---
Patient refused to do any walking this shift. This nurse washed patient this afternoon cleaning under her breasts, pannus and groin areas, observing redness and applying desenex to areas. Patient required convincing to eat any of her meals this shift, but did eat a little bit at each meal. Patient very tearful at times today worried about her son. Her called today and spoke with patient. He had gone to the ER last night due to heart issues and is not home. Patient is currently resting in bed, call light in reach and bed alarm set. Reported off to night nurse.
[2020-10-20 19:14] VITALS: BP 134/58; PULSE 71; TEMP 97.7
--- NOTE | 2020-10-20 22:45 | NUR ---
Pt has been ok but depressed. She got to talk to her son today. Pain rated 0/10. Vss. Will continue to monitor.
[2020-10-21 05:26] VITALS: BP 105/42; PULSE 59; TEMP 97.4
--- NOTE | 2020-10-21 06:12 | NUR ---
Pt has not voided all night and i noticed she is dry. I bladder scan the pt, pt retain over [address] Ashby, she ordered a sotelo catheter insertion and UA. Sotelo is inserted and pt put out 1050 ML and UA was sent down.
--- NOTE | 2020-10-21 06:30 | NUR ---
Report received from FRED Simpson. Patient is resting in bed. Call light and bedside table are within reach. Will continue to monitor patient throughout shift.
--- NOTE | 2020-10-21 09:56 | NUR ---
Lab called and stated they were unable to draw blood from patient after two attempts possibly because the patient is dehydrated.
--- NOTE | 2020-10-21 13:00 | NUR ---
Visited w/ pt, who stated she is doing okay. She becomes tearful easily & requests to be d/c'd home. Explained that she needs to get stronger & moving around jamar before we would consider d/c'ing her. We also talked about how she needs to be doing better since her hasn't been feeling well & had been in the ER this weekend. She understood but still wants to go home.
--- NOTE | 2020-10-21 13:52 | NUR ---
Admission QIM scores were reviewed by the team. Code of 5 chosen for oral hygiene was determined by team discussion to be the most usual performance before interventions for this patient during the assessment period. Code of 2 chosen for toileting transfers was determined by team discussion to be the most usual performance for this patient during the assessment period.--Tyra Navarro, PD
[2020-10-21 15:10] LABS: ALBUMIN 3.3 gm/dL (3.5-5.0); BILIRUBIN,TOTAL 1.1 mg/dL (0.0-1.0); CALCIUM 9.2 mg/dL (8.4-10.2); CREATININE, serum 1.23 (0.52-1.25); POTASSIUM 4.7 mmol/L (3.4-5.0)
[2020-10-21 17:12] VITALS: BP 116/60; PULSE 73; TEMP 97.6
[2020-10-21 19:21] VITALS: BP 115/52; PULSE 82; TEMP 97.8
--- NOTE | 2020-10-21 22:20 | NUR ---
Pt seems happy today after she spoke to her .Pain rated 0/10. Vss. Will continue to monitor.
[2020-10-21 22:35] LABS: COLLECTION METHOD CATHETER
[2020-10-21 22:41] LABS: MUCOUS Present /lpf; PH 5 (5-8); URINE APPEARANCE Hazy; URINE BACTERIA Rare /hpf; URINE BILIRUBIN Negative (NEGATIVE); URINE BLOOD Negative (NEGATIVE); URINE COLOR Yellow; URINE GLUCOSE Negative (NEGATIVE); URINE KETONE Negative (NEGATIVE); URINE LEUKOCYTE ESTERASE Trace (NEGATIVE); URINE NITRATE Negative (NEGATIVE); URINE PROTEIN(semi-quant) Negative (NEGATIVE); URINE RBC 0-2 /hpf; URINE UROBILINOGEN Negative (NEGATIVE)
[2020-10-22 05:08] VITALS: BP 107/54; PULSE 68; TEMP 97.3
--- NOTE | 2020-10-22 06:36 | NUR ---
Lab called last night because they were unable to draw the pt's lab. The experimental machining lab manager wanted to cancel it but i said to leave the order in untill they find someone who can draw it.
[2020-10-22 07:53] VITALS: BP 115/42
--- NOTE | 2020-10-22 08:00 | NUR ---
Patient was mod assist with moving up in bed this morning. Patient did all the work. Independent with eating. Takes pills whole with water. Denies pain at this time.
[2020-10-22 08:27] LABS: BASO % 0.5 % (0.0-2.0); EOS # 0.1 (0.0-0.7); EOS % 2.2 % (0-4.0); GRAN # 2.5 (1.4-6.5); GRAN % 60.4 % (42.2-75.2); HEMATOCRIT 36.3 % (37.0-47.0); LYMPH % 24.6 % (20.0-51.0); MEAN CELL VOLUME 101 fl (80.0-100.0); MEAN CORPUSCULAR HEMOGLOBIN 33 pg (27.0-31.0); MEAN CORPUSCULAR HGB CONC 33 g/dl (33.0-37.0); MEAN PLATELET VOLUME 13.3 fl (7.4-10.4); MONO # 0.5 (0.1-0.6); MONO % 11.6 % (1.7-9.3); PLATELET COUNT 91 K/mm3 (130-400); RED BLOOD COUNT 3.61 M/mm3 (4.10-5.30); REDCELL DISTRIBUTION WIDTH-CV 14.7 % (11.5-14.5)
--- NOTE | 2020-10-22 14:16 | NUR ---
Patient ate 75 % of her lunch this afternoon. She attended all her therapies this morning and afternoon. She is currently resting in recliner, call light in reach and alarm set. Patient denies any questions at this time. Denies pain this shift. Will continue to monitor.
--- NOTE | 2020-10-22 15:06 | NUR ---
This nurse did not see that a bowel movement had been charted for patient. Patient reported that she had one a few days ago.
[2020-10-22 17:11] VITALS: BP 122/48; PULSE 65; TEMP 97.3
[2020-10-22 19:37] VITALS: BP 129/46; PULSE 71; TEMP 97.5
--- NOTE | 2020-10-22 21:21 | NUR ---
PATIENT SITTING IN RECLINER ALERT AND ORIENTED. VSS. DENIES PAIN. LEDESMA TO GRAVITY WITH CLEAR YELLOW. PM MEDICATION GIVEN. CALL LIGHT WITHIN REACH.
[2020-10-23 04:31] VITALS: BP 111/40; PULSE 78; TEMP 97.4
--- NOTE | 2020-10-23 11:44 | NUR ---
Patient resting in recliner, call light in reach and alarm set. Patient refused her breakfast this morning and refused a nutrition drink. She has attended all her therapies this morning. Will continue to monitor.
--- NOTE | 2020-10-23 15:03 | NUR ---
Reveiwed team conference notes w/ pt. She stated she understood & agreed w/ current level of functioning. Informed her of d/c from next 10/30/20, w/ recommendation for home health PT/OT/ST. Reviewed that she has her own r/walker & a built in shower chair, which she does. Pt was very please to hear that she would be going home soon & actually smiled & did not become emotional this visit. Contacted pt's , Hunter. He was not available so left him a message.
--- NOTE | 2020-10-23 15:41 | NUR ---
Patient has a sotelo catheter and has good urine output. She was seen by Dr. Bueno and he ordered for the sotelo to be DC'd tomorrow morning. Patient was not on oxygen when at home so Dr. Bueno would like staff to continue to monitor patient's O2 and continue to try to wean her off oxygen both day and at HS. Patient currently resting in bed, call light in reach and bed alarm set. Will continue to monitor.
[2020-10-23 17:25] VITALS: BP 138/53; PULSE 71; TEMP 97.3
--- NOTE | 2020-10-23 19:06 | NUR ---
Patient ate 100% of her supper this evening. She is currently resting in her bed, call light in reach and bed alarm set. Reported off to night nurse.
--- NOTE | 2020-10-23 21:01 | NUR ---
PATIENT RESTING IN BED. DENIES PAIN. ASSESSMENT DONE NO EVENT AT THIS TIME. PM MEDICATION GIVEN. LAST BM WAS TWO DAYS AGO PER PATIENT. STOOL SOFTNER GIVEN. CALL LIGHT WITHIN REACH. WILL CONTINUE TO MONITOR.
[2020-10-24 06:06] VITALS: BP 109/49; PULSE 58; TEMP 98.6
--- NOTE | 2020-10-24 06:27 | NUR ---
LEDESMA CATHETER DISCONTINUE AT 0610 AM. WILL CONTINUE TO MONITOR
--- NOTE | 2020-10-24 06:30 | NUR ---
Report received by FRED Haas. Patient is sleeping in bed. Call light and bedside table are within reach. Will continue to monitor patient throughout shift.
--- NOTE | 2020-10-24 13:11 | NUR ---
Visited w/ pt, who stated she is doing fairly. Asked her if she had told her about going home on Wednesday. She stated she did not because she did not know that. Reminded her of the team conference & me reviewing that w/ her yesterday. She is pleased to know that she will be going home soon. She did not have questions or concerns at this time. Contacted pt's , Hunter. Reviewed the team conference notes w/ him & informed him of the d/c date for 10/30/20, w/ recommendations for home health PT/OT/ST. He was very pleased to hear she was doing so much better. Inquired about the home health & he stated she had had home health before. Read off the names for the home health agencies that service [place]. [facility]. Told him that SW will contact them to see if they had provided service before. Also talked to him about doing a pt/family meeting. Scheduled it for 10/28/20 @ 2:00.
[2020-10-24 18:22] VITALS: BP 104/49; PULSE 61; TEMP 97.7
[2020-10-24 20:07] VITALS: BP 112/46; PULSE 70; TEMP 97.8
[2020-10-25 06:22] VITALS: BP 113/54; PULSE 66; TEMP 97.4
--- NOTE | 2020-10-25 06:30 | NUR ---
Report received from FRED Mccurdy. Patient is sleeping in recliner. Call light and bedside table are within reach. Will continue to monitor patient throughout shift.
--- NOTE | 2020-10-25 14:51 | NUR ---
Patient has completed all therapies for the day and is relaxing in recliner.
--- NOTE | 2020-10-25 14:54 | NUR ---
Patient is now MOD I in room
[2020-10-25 17:39] VITALS: BP 117/54; PULSE 66; TEMP 97.4
[2020-10-25 19:26] VITALS: BP 121/54; PULSE 71; TEMP 97.5
--- NOTE | 2020-10-25 21:21 | NUR ---
Pt has been sitting in the chair. pain rated 0/10. Will continue to monitor.
[2020-10-26 05:15] VITALS: BP 126/58; PULSE 69; TEMP 97.9
[2020-10-26 08:00] VITALS: BP 97/78; PULSE 62; TEMP 97
--- NOTE | 2020-10-26 08:00 | NUR ---
PT RECEIVED RESTING IN BED. NO S/S OF DISTRESS NOTICED. V/S STABLE. PT DENIES HAVING PAIN. PT OFFERED HER MEAL AND STATES SHE WILL EAT A LITTLE LATER. PT OFFERED TO GO TO GROUP THERAPY SESSION BUT DECLINE TO GO TODAY. A.M. CARE PROVIDED BY [employer] [facility]. PT SITTING IN CHAIR WATCHING TV. CALL-LIGHT IN REACH. COMFORT MEASURES IN PLACE. WILL CONTINUE TO MONITOR.
[2020-10-26 12:00] VITALS: BP 107/56; PULSE 80; TEMP 97.9
[2020-10-26 16:00] VITALS: BP 99/49; PULSE 85; TEMP 97.6
[2020-10-26 19:19] VITALS: BP 135/55; PULSE 87; TEMP 98.1
--- NOTE | 2020-10-26 21:48 | NUR ---
Pt has been in good spirit. Paiwn rated 0/10. VSS, will continue to monitor.
[2020-10-27 04:55] VITALS: BP 130/59; PULSE 79; TEMP 97
--- NOTE | 2020-10-27 08:43 | NUR ---
Patient tolerating diet well this morning. Denies any pain other then her bottom, of which she was observed off loading from one side to the other to prevent pressure sores. Will continue to monitor.
[2020-10-27 17:18] VITALS: BP 99/59; PULSE 72; TEMP 97.7
--- NOTE | 2020-10-27 17:27 | NUR ---
Patient tolerated diet well this shift. Denied pain this shift. Continues to be independent in her room with her walker. Independent on all her cares. Was able to call her son this evening to visit with him. Her Hunter called and talked with her this afternoon. Currently resting in recliner, call light in reach. Will continue to monitor.
[2020-10-27 19:21] VITALS: BP 117/53; PULSE 70; TEMP 97.5
--- NOTE | 2020-10-27 21:27 | NUR ---
Pt has been ok. Pain rated 0/10. Vvs.Will continue to monitor.
[2020-10-28 05:18] VITALS: BP 111/51; PULSE 68; TEMP 97.7
--- NOTE | 2020-10-28 06:30 | NUR ---
Report received from FRED Govea. Patient is sleeping in bed. Call light and bedside table are within reach. Will continue to monitor throughout shift.
--- NOTE | 2020-10-28 14:18 | NUR ---
Conducted family meeting w/ pt & pt's , Hunter. Also present was PT, OT, ST, & SW/resident services director. The team explained how well pt has been doing, which was very pleased to hear. He stated he even watched her & was amazed how much better she is doing then even before she came to the hospital. Discued that d/c is set for 10/30/20 but since she is doing so well asked if they would be okay to d/c tomorrow, 10/29/20, which they were fine w/. Told them that SW had inquired w/ [facility] & that is who she used recently, so SW will get everything set up w/ them. They were very pleased & appreicative of everything that everyone has done for them.
--- NOTE | 2020-10-28 15:00 | NUR ---
Patient has completed all therapies for the day and is sleeping in bed. Call light and bedside table are within reach.
[2020-10-28 18:30] VITALS: BP 118/46; PULSE 60; TEMP 97.3
[2020-10-28 19:17] VITALS: BP 123/53; PULSE 70; TEMP 97.9
[2020-10-29 05:20] VITALS: BP 105/55; PULSE 65; TEMP 97.3
--- NOTE | 2020-10-29 06:47 | NUR ---
Report received from FRED Simpson. Patient is sleeping in bed. Call light and bedside table are within reach. Will continue to monitor patient throughout shift.
[2020-10-29] MEDS ORDERED: INCRUSE EL62.5 MCG/A IH (09:12)
[2020-10-29] MEDS ORDERED: TOPROL XL 25MG25 MG PO (09:14)
[2020-10-29] MEDS ORDERED: ZOLOFT 25MG25 MG PO (09:15)
[2020-10-29] MEDS ORDERED: AIRDUO DIGIHAL1 EAC1 IH (09:17)
[2020-10-29] MEDS ORDERED: PROAIR HFA0.09 MG/AC IH (09:19)
--- NOTE | 2020-10-29 09:31 | NUR ---
Visited w/ pt about d/c today. She stated she had no questions or concerns about returning home. She did comment that she will miss everyone as they were all good to her.
--- NOTE | 2020-10-29 13:25 | NUR ---
Patient health summary, discharge summary, and home meds printed and reviewed with patient and , Hunter. Stressed importance of follow up appointments. Reviewed medicatications. Belongings gathered by JOSE Valdes. Patient transported via wheelchair by JOSE Valdes and seatbelted for ride home. Patient and denied questions.
== END 2020-10-29 13:25 | disposition home health service (06) | DRG 177 ==
PROVIDERS: Internal Medicine; ADMIT Internal Medicine
DX: U07.1 COVID-19 (principal); J12.82 Pneumonia due to coronavirus disease 2019; J96.01 Acute respiratory failure with hypoxia; K85.90 Acute pancreatitis without necrosis or infection, unspecified; N39.0 Urinary tract infection, site not specified; N17.9 Acute kidney failure, unspecified; E87.2 Acidosis; E46 Unspecified protein-calorie malnutrition; L89.302 Pressure ulcer of unspecified buttock, stage 2; Z66 Do not resuscitate; F43.20 Adjustment disorder, unspecified; F32.9 Major depressive disorder, single episode, unspecified; G72.9 Myopathy, unspecified; E66.9 Obesity, unspecified; R74.01 Elevation of levels of liver transaminase levels; R53.81 Other malaise; Z86.16 Personal history of COVID-19; Z96.642 Presence of left artificial hip joint
CPT/HCPCS: 99222-AI; 99232-AI; 99233-AI; 99239; A4314; J1644

== ENCOUNTER → 2021-01-20 | Outpatient (CLI) | payer MEDICARE, BC ==
[~2021-01-20] MED LIST changes: +AIRDUO DIGIHAL1 EAC1 IH; +DESENEX TP; +HEPARIN SOD5000 U/ML SQ; +INCRUSE EL62.5 MCG/A IH; +LOPRESSOR 225 MG/TAB PO; +MELATIN 3 MG-11 TAB PO; +PROAIR HFA0.09 MG/AC IH; +ROBITUSSIN DM 105 ML PO; +TOPROL XL 25MG25 MG PO; +TYLENOL 325MG325 MG PO; +ZOFRAN ODT4 MG PO; +ZOLOFT 25MG25 MG PO; +[UNRECOGNIZED DRUG - OTHER] IH
== END ==
LOC: COL.RAD 14:03
DX: M51.36 Other intervertebral disc degeneration, lumbar region (principal); Z98.1 Arthrodesis status

== ENCOUNTER → 2021-07-15 | Outpatient (CLI) | payer MEDICARE, BC | LOC: MC.RAD 07-14 13:30 | DX: Z12.31 Encounter for screening mammogram for malignant neoplasm of breast (principal) ==